=== PATIENT | male | born 1945 | race Caucasian/White ===

== ENCOUNTER → 2020-09-19 | Outpatient (CLI) | payer MEDICARE ==
--- NOTE | 2020-09-19 12:56 | CT ---
EXAMINATION TYPE: CT hip RT wo con DATE OF EXAM: 09/19/2020 COMPARISON: None HISTORY: RIGHT hip pain, no known injury. CT DLP: 534 mGycm Automated exposure control for dose reduction was used. TECHNIQUE: Axial imaging of the right hip was obtained without intravenous contrast. Coronal and sagi ttal reformatted images obtained. Three-dimensional images were generated and utilized on a separate workstation. FINDINGS: There is no acute fracture or dislocation of the right hip. There is osteoarthritic change including joint space narrowing, subchondral cysts, and degenerative spurring at the right hip joint. Joint spa ce narrowing is more prominent superiorly and anteriorly. The myofascial planes are preserved. Three- dimensional images are consistent with the above findings. IMPRESSION: 1. No acute fracture or dislocation of the right hip. 2. Moderate osteoarthritis of the right hip as above.
== END | disposition home or self-care (01) ==
LOC: RADCTMAIN 08:22
PROVIDERS: ATTEND Orthopaedic Surgery
DX: M16.11 Unilateral primary osteoarthritis, right hip (principal)

== ENCOUNTER 2023-10-12 11:32 | Day surgery (SDC) | payer MEDICARE ==
[~2023-10-12 11:32] MED LIST: ONDANSETRON 4 MG/2 ML VIAL IVP PRN
[2023-10-12] MEDS ORDERED: ONDANSETRON 4 MG/2 ML VIAL IVP ONE ×2 (11:59→13:24)
[2023-10-12] MEDS ORDERED: LIDOCAINE 1% (10MG/ML) FOR IV START INTRADERMA PRN (11:59)
[2023-10-12] MEDS ORDERED: DEXAMETHASONE SOD PHOSPHATE 4 MG/ML 1 ML VIAL IV ONE (11:59)
[2023-10-12] MEDS ORDERED: LACTATED RINGERS 1,000 ML IV SCH (11:59)
[2023-10-12] MEDS ORDERED: HYDROmorphone 0.5 MG/0.5 ML SYRINGE IVP PRN (11:59)
[2023-10-12] MEDS ORDERED: MIDAZOLAM 2 MG/2 ML VIAL IV PRN (11:59)
[2023-10-12] MEDS: OXYMETAZOLINE 0.05% NASL SPRAY 1 SPRAY BOTTLE EA NOSTRIL PRN ×3 (13:10→13:20)
[2023-10-12] MEDS ORDERED: FAMOTIDINE 20 MG/2 ML VIAL IV STA (13:17)
[2023-10-12] MEDS ORDERED: OXYMETAZOLINE 0.05% NASL SPRAY 1 SPRAY BOTTLE NASAL ONE ×2 (13:25→13:30)
[2023-10-12] MEDS ORDERED: DEXAMETHASONE SOD PHOSPHATE 4 MG/ML 1 ML VIAL IVP ONE (13:25)
[2023-10-12] MEDS ORDERED: FAMOTIDINE 20 MG/2 ML VIAL IVP ONE (13:25)
[2023-10-12] MEDS ORDERED: SUCCINYLCHOLINE CHLORIDE 200 MG/10 ML VIAL IV ONE (13:27)
[2023-10-12] MEDS ORDERED: ePHEDrine 50 MG/ML 1 ML VIAL ONE (13:27)
[2023-10-12] MEDS ORDERED: fentaNYL (PF) 50 MCG/ML 2 ML AMP ONE (13:27)
[2023-10-12] MEDS ORDERED: PROPOFOL 10 MG/ML 20 ML VIAL IV ONE (13:27)
[2023-10-12] MEDS ORDERED: LIDOCAINE 1% INJ 10MG/ML (20 ML MDV) ONE (13:27)
[2023-10-12] MEDS ORDERED: MIDAZOLAM 2 MG/2 ML VIAL ONE (13:27)
[2023-10-12] MEDS ORDERED: LIDOCAINE 2%-EPI 1:100,000 20 ML VIAL SQ ONE ×2 (13:32)
[2023-10-12] MEDS ORDERED: BACITRACIN ZINC 500 UNIT/GM OINT 28.4 GM TUBE TOPICAL ONE (14:02)
--- NOTE | 2023-10-12 14:27 | P.OP ---
Date of Procedure: 10/12/23 Preoperative Diagnosis: Deviated nasal septum Inferior turbinate hypertrophy Chronic sinusitis Postoperative Diagnosis: Same Procedure(s) Performed: Septoplasty Outfracture and submucous resection of the inferior turbinates Bilateral endoscopic sinus surgery including bilateral maxillary antrostomy with tissue from the right maxillary sinus left anterior posterior ethmoidectomy with left frontal sinus exploration Anesthesia: YOSHI Surgeon: Jeramy Ramirez Estimated Blood Loss (ml): 10 Pathology: other (The septal bone and cartilage sinus contents) Condition: stable Disposition: PACU Indications for Procedure: This 78-year-old white male whose had difficulties with chronic and recurrent sinusitis nasal airway obstruction and congestion with remote history of sinus surgery with polypectomy about [address] showed evidence of chronic sinusitis Operative Findings: Nasal septum deviated to the left with inferior turbinate hypertrophy bilaterally and diffuse chronic mucosal inflammation in the affected sinuses Description of Procedure: The patient was brought into the operative suite and placed in a supine position. The patient underwent induction of general anesthesia with oral endotracheal intubation without difficulty. The patient was prepped and draped in the usual aseptic fashion with the orbits in the operating field for monitoring to the case and the computed tomography scan was on the computer scr een for review throughout the case. 1% lidocaine with 1 :100,000 epinephrine was infused submucosally into both sides of the nasal septum as well as the lateral nasal wall and anterior tips of the middle turbinates. While this was taking vasoconstrictive effect the inferior turbinates were infractured with [place] elevator and partial submucous resection of the inferior turbinates was performed with a portion of the submucosal soft tissue and the inferior turbinate bone removed with Coblation device. The inferior turbinates were then outfractured with the [place] elevator. A left hemitransfixion incision was then made with the mucoperichondrial and mucoperiosteal flap on the left elevated. The bony cartilaginous junction was disarticulated and the mucoperiosteal flap on the right was elevated. There was considerable scarring and residual cartilage was scored to remodel the cartilage but was not actually removed. Bony deformities were reduced with [place] elevator. Checking intranasally this corrected the nasoseptal deformities and the hemitransfixion incision was closed with a running 4-0 chromic suture. Full 0 endoscopic examination is performed bilaterally. Beginning on the le ft, the middle turbinate was medialized. The maxillary ostium was located with a ballpoint probe and an infundibulotomy was performed followed by uncinectomy. The maxillary antrostomy was enlarged at the expense of the anterior and posterior fontanelle taking care anteriorly not to injure the lacrimal bone. The maxillary sinus was evaluated with 30 and 70 endoscope . Anterior and posterior ethmoidectomy were then performed from anterior to posterior to the level of the skull base. The roof of the anterior ethmoid air cells were then cleaned from posterior to anterior using up-biting [place] forceps. The ethmoid air cells that were removed were residual as there was evidence of previous ethmoidectomy The frontal sinus was opened with a curved suction and giraffe forceps and explo red The frontal sinus was then explored with 30 endoscope. Attention was then turned to the right where the right middle turbinate was medialized with a [place] elevator. The maxillary sinus ostium was opened further although was somewhat patent already. Ethmoidectomies from previous appeared patent. A small cyst was in the right maxillary sinus which was removed with giraffe forceps. [Nasopore nasal dressing was placed in the middle meatus bilaterally under direct visualization]. The patient was suctioned in oral gastric fashion and was allowed to emerge from general anesthesia having tolerated procedure well and was extubated in the operating suite and transferred to the postoperative recovery area in satisfactory condition.
[2023-10-12 14:45] VITALS: TEMP 97
[2023-10-12 15:14] VITALS: RESP 18
[2023-10-12 15:42] VITALS: BP 144/73; PULSE 63
== END 2023-10-12 15:52 | disposition home or self-care (01) ==
LOC: OR 11:32
PROVIDERS: ATTEND Otolaryngology
DX: J34.2 Deviated nasal septum (principal); J34.3 Hypertrophy of nasal turbinates; J32.8 Other chronic sinusitis; J45.909 Unspecified asthma, uncomplicated; Z87.891 Personal history of nicotine dependence; Z90.89 Acquired absence of other organs; Z98.890 Other specified postprocedural states
CPT/HCPCS: 88305; 30520; 30140; 31253; 31267; J2250; J0330; J1100; J0690; J2405; J2001; J3010; J3490; J2704